=== PATIENT | male | born 1965 | race Caucasian/White ===

== ENCOUNTER → 2022-08-21 15:33 | Outpatient (BNVA) | payer OTHER, SELFPAY | PROVIDERS: PCP Internal Medicine; Visit Provider Psychiatry & Neurology Psychiatry | DX: F34.1 Dysthymic disorder (principal) | CPT/HCPCS: 90833; 99212 ==

== ENCOUNTER → 2023-03-13 15:11 | Outpatient (BNVA) | payer OTHER, SELFPAY | PROVIDERS: PCP Internal Medicine; Visit Provider Psychiatry & Neurology Psychiatry | DX: F34.1 Dysthymic disorder (principal); F43.0 Acute stress reaction; Z59.86 Financial insecurity | CPT/HCPCS: 90833; 99212 ==

== ENCOUNTER → 2023-07-24 15:37 | Outpatient (BNVA) | payer OTHER, SELFPAY | PROVIDERS: PCP Internal Medicine; Visit Provider Psychiatry & Neurology Psychiatry ==

== ENCOUNTER 2023-11-06 15:47 | Outpatient (AMB) | payer OTHER, SELFPAY ==
--- NOTE | 2023-11-06 15:39 | MHC.OFFVISPS ---
Intake Intake Visit Reasons: depression Allergies Iodinated Contrast Media Allergy (Severe, Verified 08/21/22 15:55) Anaphylaxis sulfamethoxazole [From Bactrim] Allergy (Intermediate, Verified 08/21/22 15:55) Rash trimethoprim [From Bactrim] Allergy (Intermediate, Verified 08/21/22 15:55) Rash HPI- Psychiatric Chief Complaint: depression HPI Narrative: Pt is 58 yo male medically stable chronic knee problems psa stable casually dating mood stable no panic the patient is currently living with his brother he does use relaxation breathing for onset of panic never at this point has full-blown panic attack. Able to enjoy things some degree of chronic financial stress but relieved for door to be final in settlement. Patient also gets a lot of meaning out of his relationship with his daughter and grandson He is getting treatment for inflammatory arthritis Past Psychiatric History: long hx depression past panic Mental Status Exam Mental Status Exam Patient Appearance: Well Grooomed Patient Orientation: Person Level of Consciousness: Awake Patient Behavior: Appropriate Mood Description: Calm and Appropriate Affect Description: Appropriate Memory Description: Intact Hallucinations: None Delusions: Not Present Thought Process: Intact Thought Content: positive for Intact Judgement: Good Judgement and Insight: future oriented Assessment and Plan Assessment & Plan (1) Dysthymic disorder: Status: Acute Code(s): F34.1 - Dysthymic disorder (2) Panic disorder without agoraphobia with panic attacks full remission: Status: Acute Code(s): F41.0 - Panic disorder [episodic paroxysmal anxiety] Plan Continue fluoxetine Wellbutrin occasional clonazepam no complaints of side effects has cognitive behavioral and breathing techniques continue plan of care follow-up in 4- 5 months Medications: Refilled bupropion HCl 150 mg PO DAILY 90 days 90 tabs 1RF fluoxetine 40 mg PO DAILY 90 days 90 caps 1RF clonazepam 0.5 - 1 mg (0.5 - 1 x 1 mg) PO DAILY PRN 30 tabs 1RF anxiety Counseling and coordination of Care Pt. Self Management counseling: Breathing and Exercise Medication management counseling: Effectiveness Diagnosis and Prognosis Counseling: Adequacy of current interventions Details: I spent [35 minutes reviewing the record, seeing the patient and documenting in the medical record. Counseling provided to the patient/caregiver as outlined below. Addressed patient/caregiver concerns regarding current medication regime including effective adherence. Addressed patient/caregiver concerns regarding diagnosis and prognosis including accuracy of diagnosis, prognosis over time, impact of diagnosis. Addressed patient/caregiver concerns regarding impact of recent stressors. [facility] Medical History (Updated 11/06/23 @ 16:06 by Kyree Currie MD) Panic disorder without agoraphobia with panic attacks full remission Panic disorder Dysthymic disorder Social History: has 1 daughter l has 1 grandson currently living with brother second marriage works as [employer] business 1 sister 1 brother f Substance History: none Trauma History: none Coding Level of Care Code Est Pt Level 4 (95209) Diagnoses Dysthymic disorder F34.1 Panic disorder without agoraphobia with panic attacks full remission F41.0
== END 2023-11-06 16:00 ==
LOC: HO.HOP 15:47
PROVIDERS: PCP Internal Medicine; Visit Provider Psychiatry & Neurology Psychiatry
DX: F34.1 Dysthymic disorder (principal); F41.0 Panic disorder [episodic paroxysmal anxiety]
CPT/HCPCS: 99214

== ENCOUNTER → 2023-11-06 15:47 | Outpatient (BNVA) | payer OTHER, SELFPAY | PROVIDERS: PCP Internal Medicine; Visit Provider Psychiatry & Neurology Psychiatry | DX: F34.1 Dysthymic disorder (principal); F41.0 Panic disorder [episodic paroxysmal anxiety] | CPT/HCPCS: 99212 ==

== ENCOUNTER 2024-03-18 16:03 | Outpatient (AMB) | payer OTHER, SELFPAY ==
--- NOTE | 2024-03-18 15:54 | MHC.OFFVISPS ---
Intake Intake Visit Reasons: Depression Allergies Iodinated Contrast Media Allergy (Severe, Verified 08/21/22 15:55) Anaphylaxis sulfamethoxazole [From Bactrim] Allergy (Intermediate, Verified 08/21/22 15:55) Rash trimethoprim [From Bactrim] Allergy (Intermediate, Verified 08/21/22 15:55) Rash Medication List - Last Reconciled 03/18/24 by Kyree Currie MD atorvastatin 20 mg PO BEDTIME bupropion HCl XL 150 mg PO DAILY 90 days clonazepam 0.5 - 1 mg (0.5 - 1 x 1 mg) PO DAILY PRN fluoxetine 40 mg PO DAILY 90 days hydroxychloroquine 200 mg PO BID meloxicam 15 mg PO DAILY omeprazole 20 mg PO DAILY oxybutynin chloride ER mg PO sulfasalazine 500 mg PO BID HPI- Psychiatric Chief Complaint: Depression HPI Narrative: Patient seen psychiatric follow-up. Patient's mood is stable somewhat demoralized still has been not able to find a house to live. He has been having more pain which has prevented him from 1 of his favorite activities pickleball Past Psychiatric History: long hx depression past panic Mental Status Exam Mental Status Exam Patient Appearance: Well Grooomed Patient Orientation: Person, Place, Time and Situation Level of Consciousness: Awake Patient Behavior: Appropriate Mood Description: Calm and Appropriate Affect Description: Appropriate Memory Description: Intact Hallucinations: None Delusions: Not Present Thought Process: Intact Thought Content: positive for Intact Depressive Symptoms: Increased Anxiety Judgement: Good Judgement and Insight: future oriented some concern regarding pain possible need for surgery otherwise has generally adapted okay to his situation Assessment and Plan Assessment & Plan (1) Panic disorder without agoraphobia with panic attacks full remission: Status: Acute Code(s): F41.0 - Panic disorder [episodic paroxysmal anxiety] (2) Dysthymic disorder: Status: Acute Code(s): F34.1 - Dysthymic disorder Plan Patient generally stable manage his anxiety has been dealing with some degree of pain may need surgery somewhat demoralized regarding having to live with his brother at this point generally can focus and concentrate continues on Wellbutrin fluoxetine occasional use of clonazepam Medications: Refilled clonazepam 0.5 - 1 mg (0.5 - 1 x 1 mg) PO DAILY PRN 30 tabs 1RF anxiety fluoxetine 40 mg PO DAILY 90 caps 1RF 90 days Counseling and coordination of Care Details-Self Mgmt counseling: General strategies for chronic stress Diagnosis and Prognosis Counseling: Prognosis over time and Adequacy of current interventions Details: I spent [30] minutes reviewing the record, seeing the patient and documenting in the medical record. Counseling provided to the patient/caregiver as outlined below. Addressed patient/caregiver concerns regarding current medication regime including effective adherence. Addressed patient/caregiver concerns regarding diagnosis and prognosis including accuracy of diagnosis, prognosis over time, impact of diagnosis. Addressed patient/caregiver concerns regarding impact of recent stressors. 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
== END 2024-03-18 16:07 | disposition home or self-care (01) ==
LOC: HO.HOP 16:03
PROVIDERS: PCP Internal Medicine; Visit Provider Psychiatry & Neurology Psychiatry
DX: F41.0 Panic disorder [episodic paroxysmal anxiety] (principal); F34.1 Dysthymic disorder
CPT/HCPCS: 99214

== ENCOUNTER → 2024-03-18 16:03 | Outpatient (BNVA) | payer OTHER, SELFPAY | PROVIDERS: PCP Internal Medicine; Visit Provider Psychiatry & Neurology Psychiatry | DX: F41.0 Panic disorder [episodic paroxysmal anxiety] (principal); F34.1 Dysthymic disorder | CPT/HCPCS: 99212 ==

== ENCOUNTER 2024-09-02 14:28 | Outpatient (AMB) | payer OTHER, SELFPAY ==
--- NOTE | 2024-09-02 15:03 | A.OFFPSYCH_ITS ---
Intake Intake Visit Reasons: Depression Allergies Iodinated Contrast Media Allergy (Severe, Verified 08/21/22 15:55) Anaphylaxis sulfamethoxazole [From Bactrim] Allergy (Intermediate, Verified 08/21/22 15:55) Rash trimethoprim [From Bactrim] Allergy (Intermediate, Verified 08/21/22 15:55) Rash HPI- Psychiatric Chief Complaint: Depression HPI Narrative: Pt is generally doing ok has chronic knee pain not able to do pickleball which was a great psychological relief. Trying to avoid surgery. Pt occasionally somewhat demoralized but mostly ok no panic very rare use of klonapin. Phq9 5 . No c/o side effects prozac wellbutrin Past Psychiatric History: long hx depression past panic Mental Status Exam Mental Status Exam Patient Appearance: Well Grooomed Patient Orientation: Person, Place, Time and Situation Level of Consciousness: Awake Patient Behavior: Appropriate Mood Description: Appropriate Affect Description: Appropriate and Constricted Memory Description: Intact Hallucinations: None Delusions: Not Present Thought Process: Intact Thought Content: positive for Intact Depressive Symptoms: Increased Anxiety Judgement: Good Judgement and Insight: future oriented some concern regarding pain possible need for surgery otherwise has generally adapted okay to his situation has supports Assessment and Plan Assessment & Plan (1) Dysthymic disorder: Status: Acute Code(s): F34.1 - Dysthymic disorder (2) Panic disorder without agoraphobia with panic attacks full remission: Status: Acute Code(s): F41.0 - Panic disorder [episodic paroxysmal anxiety] Plan rare use of klonapin generally stable on prozac and wellbutrin cont plan of care pt to see if pcp will take over tx if needed Medications: Refilled clonazepam 0.5 - 1 mg (0.5 - 1 x 1 mg) PO DAILY PRN 30 tabs 1RF anxiety fluoxetine 40 mg PO DAILY 90 caps 1RF 90 days bupropion HCl XL 150 mg PO DAILY 90 tabs 1RF 90 days Counseling and coordination of Care Details-Self Mgmt counseling: issues related to dealing with chronic stress Medication management counseling: Effectiveness and Side effects Details-Med Mgmt counseling: no c/o side effects Details: I spent [] minutes reviewing the record, seeing the patient and documenting in the medical record. Counseling provided to the patient/caregiver as outlined below. Addressed patient/caregiver concerns regarding current medication regime including effective adherence. Addressed patient/caregiver concerns regarding diagnosis and prognosis including accuracy of diagnosis, prognosis over time, impact of di agnosis. Addressed patient/caregiver concerns regarding impact of recent stressors. 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
== END 2024-09-02 15:13 | disposition home or self-care (01) ==
LOC: HO.HOP 14:28
PROVIDERS: PCP Internal Medicine; Visit Provider Psychiatry & Neurology Psychiatry
DX: F34.1 Dysthymic disorder (principal); F41.0 Panic disorder [episodic paroxysmal anxiety]
CPT/HCPCS: 90833; 99213

== ENCOUNTER → 2024-09-02 14:28 | Outpatient (BNVA) | payer OTHER, SELFPAY | PROVIDERS: PCP Internal Medicine; Visit Provider Psychiatry & Neurology Psychiatry | DX: F32.A Depression, unspecified (principal); F34.1 Dysthymic disorder; F41.0 Panic disorder [episodic paroxysmal anxiety]; M25.569 Pain in unspecified knee; G89.29 Other chronic pain; Z71.89 Other specified counseling | CPT/HCPCS: 99212 ==

== ENCOUNTER 2025-02-03 14:39 | Outpatient (AMB) | payer OTHER, SELFPAY ==
--- NOTE | 2025-02-03 15:05 | MHC.OFFVISPS ---
Intake Intake Visit Reasons: Depression Allergies Iodinated Contrast Media Allergy (Severe, Verified 08/21/22 15:55) Anaphylaxis sulfamethoxazole [From Bactrim] Allergy (Intermediate, Verified 08/21/22 15:55) Rash trimethoprim [From Bactrim] Allergy (Intermediate, Verified 08/21/22 15:55) Rash Medication List - Last Reconciled 02/03/25 by Kyree Currie MD atorvastatin 20 mg PO BEDTIME bupropion HCl XL 150 mg PO DAILY 90 days clonazepam 0.5 - 1 mg (0.5 - 1 x 1 mg) PO DAILY PRN fluoxetine 40 mg PO DAILY 90 days hydroxychloroquine 200 mg PO BID meloxicam 15 mg PO DAILY mirabegron ER (Myrbetriq) 50 mg PO DAILY omeprazole 20 mg PO DAILY oxybutynin chloride ER mg PO sulfasalazine 500 mg PO BID HPI- Psychiatric Chief Complaint: Depression HPI Narrative: Patient seen psychiatric follow-up. Patient is somewhat chronically dysthymic. Had legal issues with the state that limits his ability to earn an income own a home. Patient has been on Prozac and Wellbutrin. He had been doing him approved when able to play sports on a regular basis however has had chronic knee difficulties has been recommended knee replacement which he has been hesitant to do. Has been somewhat more situationally depressed but has adapted to his situation feels Prozac and Wellbutrin helpful. No change in medical status. Rare use of Klonopin for panic. No SI Past Psychiatric History: long hx depression past panic Mental Status Exam Mental Status Exam Patient Appearance: Well Grooomed Patient Orientation: Person, Place, Time and Situation Level of Consciousness: Awake Patient Behavior: Appropriate Mood Description: Appropriate and Constricted Affect Description: Appropriate and Constricted Ability to Follow Directions: Excellent Speech Pattern: Clear Memory Description: Intact Hallucinations: None Delusions: Not Present Thought Process: Intact Thought Content: positive for Intact Depressive Symptoms: Increased Anxiety Judgement: Good Judgement and Insight: future oriented some concern regarding pain possible need for surgery otherwise has generally adapted okay to his situation has supports ongoing no change Assessment and Plan Assessment & Plan (1) Dysthymic disorder: Status: Acute Code(s): F34.1 - Dysthymic disorder (2) Panic disorder without agoraphobia with panic attacks full remission: Status: Acute Code(s): F41.0 - Panic disorder [episodic paroxysmal anxiety] Plan Some chronic frustration but has generally adapted to his current situation. Somewhat constricted no SI. Patient is stable on Prozac 40 mg Wellbutrin 150 mg rare use of clonazepam for panic. No abuse or tolerance does not use on a regular basis. Patient stable be seen in follow-up by his primary care physician no changes indicated. Can refer back for consultation if needed Medications: Refilled fluoxetine 40 mg PO DAILY 90 days 90 caps 1RF bupropion HCl XL 150 mg PO DAILY 90 days 90 tabs 1RF clonazepam 0.5 - 1 mg (0.5 - 1 x 1 mg) PO DAILY PRN 30 tabs 1RF anxiety Counseling and coordination of Care Details-Self Mgmt counseling: Issues related to chronic situational stress related to legal and tax situation Medication management counseling: Effectiveness Diagnosis and Prognosis Counseling: Adequacy of current interventions Details: I spent [38] minutes reviewing the record, seeing the patient and documenting in the medical record. Counseling provided to the patient/caregiver as outlined below. Addressed patient/caregiver concerns regarding current medication regime including effective adherence. Addressed patient/caregiver concerns regarding diagnosis and prognosis including accuracy of diagnosis, prognosis over time, impact of diagnosis. Addressed patient/caregiver concerns regarding impact of recent stressors. 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
--- OUTSIDE RECORDS SUMMARY | 2025-02-03 15:52 | XMS_ITS | Clinical Summary ---
Author Organization [facility] ity Address [address] [place] [address] Care Team Providers Care Transportation Associate Name Role Phone Carlton Roach MD Primary Care Provider [phone] Social History Tobacco Use Types Packs/Day Years Used Date Smoking Tobacco: Never Assessed Sex and Gender Information Value Date Recorded Sex Assigned at Not on file Legal Sex Male 6:25 AM EST Gender Identity Not on file Sexual Orientation Not on file Obstetrics History Plan of Treatment Health Maintenance Due Date Last Done Comments DTaP,Tdap,and Td Vaccines (1 - Tdap) 1982 Pneumococcal Vaccine: 50+ Ye ars (1 of 1 - PCV) 2013 Zoster Vaccines (1 of 2) 2013 COVID-19 Vaccine ( - 2023-2 5 season) 2024 Influenza Vaccine (Season Ended) 2025 RSV Immunization Adult Patie nts (1 - 1-dose 75+ series) 2038 HIB Vaccines Aged Out No longer eligi ble based on patient's age to complete this topic HPV Vaccines Aged Out No longer eligi ble based on patient's age to complete this topic Hepatitis A Vaccines Aged Out No long er eligible based on patient's age to complete this topic Hepatitis B Vaccines Aged Out No long er eligible based on patient's age to complete this topic IPV Vaccines Aged Out No longer eligi ble based on patient's age to complete this topic MMR Vaccines Aged Out No longer eligi ble based on patient's age to complete this topic Meningococcal ACWY Vaccine Aged Out N o longer eligible based on patient's age to complete this topic Meningococcal B Vaccine Aged Out No l onger eligible based on patient's age to complete this topic Pneumococcal Vaccine: Pediat rics (0 to 5 Years) and At-Risk Patients (6 to 64 Years) Aged Out No longer eligible b ased on patient's age to complete this topic RSV Immunization Patients Un magaly 20 months Aged Out No longer eligible b ased on patient's age to complete this topic Varicella Vaccines Aged Out No longer eligible based on patient's age to complete this topic Care Teams Transportation Associate Relationship Specialty Start Date End Date Carlton Roach MD [address] [place], [place] PCP - General Internal Medicine 06/03/20
== END 2025-02-03 15:09 | disposition home or self-care (01) ==
LOC: HO.HOP 14:39
PROVIDERS: PCP Internal Medicine; Visit Provider Psychiatry & Neurology Psychiatry
DX: F34.1 Dysthymic disorder (principal); F41.0 Panic disorder [episodic paroxysmal anxiety]
CPT/HCPCS: 90833; 99213

== ENCOUNTER → 2025-02-03 14:39 | Outpatient (BNVA) | payer OTHER, SELFPAY | PROVIDERS: PCP Internal Medicine; Visit Provider Psychiatry & Neurology Psychiatry | DX: F34.1 Dysthymic disorder (principal); F41.0 Panic disorder [episodic paroxysmal anxiety] | CPT/HCPCS: 99212 ==